=== PATIENT | female | born 1955 | race Caucasian/White ===

== ENCOUNTER 2023-06-07 09:42 | Outpatient (CLI) | payer MEDICARE, OTHER ==
[~2023-06-07] VITALS: Ht 170.2 cm; Wt 91.8 kg
[2023-06-08] MEDS ORDERED: SEMA2PEN SQ (08:18)
[2023-06-08] MEDS ORDERED: MAGN250T31 PO (08:18)
[2023-06-08] MEDS ORDERED: EMPA1TAB7 PO (08:18)
[2023-06-08] MEDS ORDERED: CETI10CA PO (08:18)
[2023-06-08] MEDS ORDERED: LEVO150T PO (08:18)
[2023-06-08] MEDS ORDERED: PANT40GR PO (08:18)
[2023-06-08] MEDS ORDERED: PIOG15TA9 PO (08:18)
[2023-06-08] MEDS ORDERED: VERA120C4 PO (08:18)
[2023-06-08] MEDS ORDERED: BETA1TAB12 PO (08:18)
[2023-06-08] MEDS ORDERED: TUME1CAP PO (08:18)
[2023-06-08] MEDS ORDERED: CLOP75TA28 PO (08:18)
[2023-06-08] MEDS ORDERED: CITA20TA9 PO (08:18)
[2023-06-08] MEDS ORDERED: ATOR40TA70 PO (08:18)
== END 2023-06-08 09:51 | disposition home or self-care (01) ==
LOC: PREOP 09:42
PROVIDERS: ATTEND Podiatrist Foot & Ankle Surgery
DX: Z01.818 Encounter for other preprocedural examination (principal)

== ENCOUNTER 2023-06-13 08:15 | Day surgery (SDC) | payer MEDICARE, OTHER ==
[~2023-06-13] VITALS: Ht 170.2 cm; Wt 91.8 kg
[2023-06-13] VITALS (11 sets, daily range): BP systolic 90–128; BP diastolic 50–79
[~2023-06-13 08:15] MED LIST: ATOR40TA70 PO; BETA1TAB12 PO; CETI10CA PO; CITA20TA9 PO; CLOP75TA28 PO; EMPA1TAB7 PO; LACTATED RINGERS 1,000 ML 1,000 ML IV PRN; LEVO150T PO; MAGN250T31 PO; PANT40GR PO; PIOG15TA9 PO; SEMA2PEN SQ; TUME1CAP PO; VERA120C4 PO; ceFAZolin INJECTION 1,000 MG in NS (IVPB) 50 ML 50 ML IV ONE
[2023-06-13] MEDS ORDERED: LIDOCAINE 1% INJ 20 ML VIAL ONE (08:51)
[2023-06-13] MEDS ORDERED: BUPIVACAINE 0.5% 10 ML VIAL ONE ×3 (08:51→11:17)
[2023-06-13] MEDS ORDERED: fentaNYL INJECTION 100 MCG/2 ML VIAL ONE (09:05)
--- NOTE | 2023-06-13 09:08 | Progress Note-Pre Operative ---
Pre-Operative Progress Note Date of Available H&P: Jun 13, 2023 Date H&P Reviewed: Jun 13, 2023 Time H&P Reviewed: 09:08 Pre-Operative Diagnosis: Hammertoes left 2, 3, 4, 5 LUX KING DPM Jun 13, 2023 09:08
[2023-06-13] MEDS ORDERED: LIDOCAINE 1% INJ 20 ML VIAL INJ ONE (10:03)
[2023-06-13] MEDS ORDERED: proPOfol INJECTION 200 MG/20 ML VIAL IV ONE (10:40)
[2023-06-13] MEDS ORDERED: LIDOCAINE PF 2% 5 ML VIAL ONE (10:40)
[2023-06-13] MEDS ORDERED: ONDANSETRON INJECTION 4 MG/2 ML (SDV) ONE (10:40)
--- NOTE | 2023-06-13 11:36 | Anesthesia-General Post-Op ---
General Patient Condition Mental Status/LOC: Same as Preop Cardiovascular: Satisfactory Nausea/Vomiting: Absent Respiratory: Satisfactory Pain: Controlled Complications: Absent Post Op Complications Complications None Follow Up Care/Instructions Patient Instructions None needed. Anesthesia/Patient Condition Patient Condition Patient is doing well, no complaints, stable vital signs, no apparent adverse anesthesia problems. No complications reported per nursing. AMRITA WEINSTEIN CRNA Jun 13, 2023 11:36
--- NOTE | 2023-06-13 11:38 | Progress Note-Post Operative ---
Post-Operative Progess Note Surgeon (s)/Teacher Education Director (s) Surgeon LUX KING DPM Teacher Education Director: none Pre-Operative Diagnosis Hammertoes left 2, 3, 4, 5 Post-Operative Diagnosis same Procedure & Operative Findings Date of Procedure 06/13/23 Procedure Performed/Findings Reduction of hammertoes left 2nd, 3rd, 4th and 5th digits Anesthesia Type general Estimated Blood Loss Estimated blood loss (mL): minimal Specimens/Packing Specimens Removed none LUX KING DPM Jun 13, 2023 11:38
[2023-06-13] MEDS ORDERED: CEPH500C PO (11:41)
[2023-06-13] MEDS ORDERED: ACHD5005 PO (11:41)
[2023-06-13] MEDS ORDERED: ONDANSETRON INJECTION 4 MG/2 ML (SDV) IVP PRN (11:45)
[2023-06-13] MEDS ORDERED: fentaNYL INJECTION 100 MCG/2 ML VIAL IVP ONE (11:45)
[2023-06-13] MEDS ORDERED: MEPERIDINE INJ 50 MG/ML VIAL IVP ONE (11:45)
[2023-06-13] MEDS ORDERED: morphine INJ 10 MG/ML 1ML (SYR OR VIAL) IVP ONE (11:45)
[2023-06-13] MEDS ORDERED: HYDROcodone/ACETAMINOPHEN 5 MG/325 MG TABLET PO PRN (11:45)
[2023-06-13] MEDS ORDERED: LACTATED RINGERS 1,000 ML 1,000 ML IV SCH (11:45)
--- NOTE | 2023-06-13 17:12 | Diagnostic Imaging Report ---
INDICATION: Postop left foot surgery. AP and lateral views of the left foot are obtained at 11:37 a.m. There is no prior study for comparison. Pins are in place across the 2nd, 3rd, and 4th digits, across the interphalangeal joints with anatomic alignment. There is no unexpected radiopaque foreign body post surgery. IMPRESSION: Postop changes of 2nd through 4th digits, as above, with anatomic alignment and no unexpected foreign body. Dictated by: Dictated on workstation # [id number]
--- NOTE | 2023-06-13 20:46 | OPERATIVE REPORT ---
DATE OF SERVICE: 06/13/2023 SURGEON: Carolyn King DPM PREOPERATIVE DIAGNOSIS: Hammer digit syndrome, left second, third, fourth and fifth digits. POSTOPERATIVE DIAGNOSIS: Hammer digit syndrome, left second, third, fourth and fifth digits. PROCEDURE: Reduction of hammertoes, left second, third, fourth and fifth digits. WOUND CLASS: Clean. ANESTHESIA: General. HEMOSTASIS: Pneumatic thigh tourniquet at 250 mmHg. INDICATIONS: This 67-year-old female presents complaining of painful hammertoes, left foot. Conservative therapy is met with unsatisfactory results and the patient is agreeable to surgical intervention after risks and complications were discussed at length. No guarantees were extended to the patient and she is willing to proceed. DESCRIPTION OF PROCEDURE: The patient was brought back to the operating table and placed in secure supine position. General anesthetic was then induced. Appropriate timeout was performed. A pneumatic thigh tourniquet was placed on the left lower extremity over several layers of padding. A 10 mL of 1:1 mixture of 1% Xylocaine and 0.5% Marcaine was injected in a digital block to the second, third, fourth and fifth digits, left foot. Left foot was then prepped and draped in normal sterile manner. Left foot was then elevated allowed to exsanguinate after which the tourniquet was inflated to 250 mmHg. Attention was then directed to the dorsal aspect of the left second, third, fourth digits where an incision was made from the metatarsophalangeal joint to the distal interphalangeal joint of the digits. The incisions were deepened in the same plane with great care to identify and retract all vital neurovascular structures. The incisions were deepened down to the extensor tendon where Z-slide lengthening was performed to the second, third and fourth digits overlying the proximal phalanx. Next, the extensor martinez overlying the metatarsophalangeal joints were released after which a dorsal capsulorrhaphy was performed to the second, third and fourth digits at the metatarsophalangeal joint. There was some medial deviation to the toes 2 and 3 where the medial collateral ligaments were released. This allowed for better alignment of the digits and the proximal phalanx came down into more rectus alignment. Next, utilizing a power sagittal saw, the head of the proximal phalanx was fashioned into the peg and a hole was created to the base of the middle phalanx to the second, third and fourth digits. This is for the peg-in-hole type arthrodesis. The only exception to this, there is a previous surgical implant to the proximal interphalangeal joint area healed in a rigid contracted position. Utilizing a power sagittal saw, the proximal phalanx of the left second toe was between the proximal and middle phalanx. After which, the implant was removed. There was still sufficient bone stock to allow for the peg-in-hole type arthrodesis. This also allowed for shortening of the second ray, which was appropriate in allowing it to the end of the proximal same length as the adjacent digits. The wounds were flushed with copious amounts of normal saline. A 0.054 K-wire was driven down the digits second, third, fourth of the left foot. The excess K-wire was cut and a protective ball placed over the end of the wires. Unfortunately, on the left third digit, there is a significant contracture at the distal interphalangeal joint, so prior to the wire being placed, a stab incision with an 11 blade was created at the plantar aspect of the distal interphalangeal joint after which a transverse tenotomy was performed. This allowed for more appropriate alignment of the left third digit. The wounds were flushed once again and closure was then performed in layers. The extensor tendons were repaired with 3-0 Vicryl, 4-0 Vicryl was utilized for subcutaneous repair as well as a 4-0 Prolene for horizontal mattress type stitch for the skin. Excellent reduction of the misalignment of the digits were appreciated this time. Attention was then directed to the left fifth toe where adductive varus contracture was noted. Two semi-elliptical incisions from dorsal distal to plantar proximal were overlying the proximal interphalangeal joint. The circumscribed skin was removed in toto. The incision was deepened down to the extensor tendon where a transverse tenotomy and release of the medial and lateral collateral ligaments were performed. This exposed the hypertrophic head of the proximal phalanx, which was resected with a power sagittal saw. The wound was flushed with copious amounts of normal saline. The digit was derotated and the extensor tendon repaired in its new position utilizing a 4-0 Vicryl. Subcutaneous tissue was reapproximated with 4-0 Vicryl, skin closed with 4-0 Prolene in a horizontal mattress type stitch. Postoperative injection consisted of 20 mL of 0.5% Marcaine injected in local infusion to the surgical sites. Postoperative dressing consisted of Betadine-soaked Adaptic, sterile 4 x 4's, sterile Kerlix, all secured with a Coban wrap. The patient tolerated the anesthesia and procedure well and was transported from the operating room to the recovery room with vital signs stable and vascular status intact to all digits of the left foot. She is to be partial nonweightbearing on the left lower extremity with heel contact only. We will see her back in the office in 10 days period of time or sooner if necessary. She was given a prescription for Keflex as well as hydrocodone. Job ID: [id number] DocumentID: [id number] Dictated Date: 06/13/2023 11:53:48 Budget Officer Date: 06/13/2023 20:44:00 Dictated By: CAROLYN KING DPM
== END 2023-06-13 14:00 | disposition home or self-care (01) ==
LOC: SDC 08:15
PROVIDERS: ATTEND Podiatrist Foot & Ankle Surgery
DX: M20.42 Other hammer toe(s) (acquired), left foot (principal); G47.33 Obstructive sleep apnea (adult) (pediatric); K21.9 Gastro-esophageal reflux disease without esophagitis; E11.9 Type 2 diabetes mellitus without complications; I63.9 Cerebral infarction, unspecified; I10 Essential (primary) hypertension; Z99.81 Dependence on supplemental oxygen; Z79.899 Other long term (current) drug therapy; Z87.891 Personal history of nicotine dependence; Z79.82 Long term (current) use of aspirin; Z79.4 Long term (current) use of insulin
CPT/HCPCS: 28285 ×4; 73620; 87081; C1713